=== PATIENT | female | born 1955 ===

== ENCOUNTER 2024-08-10 14:12 | Emergency (ER) | payer OTHER, SELFPAY ==
--- NOTE | 2024-08-10 14:43 | ED_ITS ---
HPI - Eye Problem General Chief complaint: Eye Problems Stated complaint: R Eye- Watery, Swelling, Pain Time Seen by Provider: 08/10/24 22:23 Source: patient Mode of arrival: ambulatory Limitations: no limitations History of Present Illness ED Provider: HPI Narrative: Patient no significant past medical history noticed vesicular lesion on the right forehead all the way to the right ear since yesterday with pain although has purulent discharge from the right eye no vision no history of shingles in the past Related Data Previous Rx's ?Medication ?Instructions ?Recorded gabapentin 300 mg capsule 300 mg PO BID #30 caps 08/10/24 tobramycin 0.3 % eye drops 2 drp ophthalmic-Right Q4H #5 mL 08/10/24 valacyclovir 1 gram tablet 1,000 mg PO TID #20 tabs 08/10/24 (Valtrex) Allergies Allergy/AdvReac Type Severity Reaction Status Date / Time No Known Allergies Allergy Verified 08/10/24 14:46 [No Known Allergies*] Review of Systems Review of Systems: Yes all other systems are reviewed and are negative [facility] Social History Social History Advance Directives: No Advance Directives Information Provided: No Do you have a plan to hurt others: No Plan Physical Exam Vital Signs: Vital Signs: Last Vital Signs Temp 97.8 F 08/10/24 22:46 Pulse 75 08/10/24 22:46 Resp 19 08/10/24 22:46 BP 168/70 H 08/10/24 22:46 Pulse Ox 99 08/10/24 22:46 O2 Del Method Room Air 08/10/24 22:46 BMI result Body Mass Index 27.2 Appearance: Alert. Oriented X3. No acute distress. Eyes: no pallor or icterus purulent discharge from the right eye no corneal abrasions fluorescein uptake negative iris normal anterior chamber normal HEENT: Pharynx normal. Oral Mucosa moist, vesicular lesion right forehead with lesions on the right side of the face Neck: Normal inspection. Neck supple. CVS: Normal heart rate and rhythm. Pulses normal. Respiratory: No respiratory distress. Equal air entry bilateral, no wheezing/rales/rhonchi Abd: soft, not tender Skin: Skin warm and dry. Normal skin color. Normal skin turgor. Course Course Course Narrative: This is an RME: Additional HPI, ROS, PE not included below will be deferred to primary provider. RME assessment and note performed by: Prema Sherman PA-C This is a [id number], with hx of HTN, who presents to the ER with complaints of eye complaint. Reports that yesterday she developed headache and has had burning pain to the right side of her face. Reporting blurred vision from her right eye. ?shingles. Plan: visual acuity, eye exam Medications Administered Discontinued Medications Generic Name Dose Route Start Last Admin Trade Name Freq PRN Reason Stop Dose Admin Fluorescein Sodium 1 strip 08/10/24 14:46 08/10/24 22:50 Fluorescein Sodium Strip EYE-RIGHT 08/10/24 14:47 1 strip ONCE ONE Administration Tetracaine HCl 1 drop 08/10/24 14:46 08/10/24 22:49 Tetracaine Hcl/Pf 0.5% Oph Jeannie 4 Ml Drops EYE-LEFT 08/10/24 14:47 Not Given ONCE ONE Medical Decision Making Medical Decision Making [facility] Narrative: Patient clinically with shingles rash in the right side of the forehead will prescribe Valtrex unlikely corneal involvement at this time patient's for to Dr. 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
[2024-08-10 14:45] VITALS: BP 186/78; PULSE 94; RESP 12; TEMP 36.7; O2SAT 96; BMI 27.2
[2024-08-10 19:48] VITALS: BP 155/55; PULSE 79; RESP 16; TEMP 35.2; O2SAT 100
[2024-08-10 22:46] VITALS: BP 168/70; PULSE 75; RESP 19; TEMP 36.6; O2SAT 99
[2024-08-10] MEDS: Fluorescein Sodium STRIP 1 STRIP EYE-RIGHT (22:50)
[2024-08-10] MEDS: Tobramycin Sulfate 0.3% Sol Op 5 ML BTL 2 DROP EYE-RIGHT (23:12)
[2024-08-10] MEDS: valACYclovir HCL 1,000 MG TABLET 1000 MG PO (23:12)
[2024-08-10 23:17] VITALS: BP 168/70; PULSE 75; RESP 19; TEMP 36.6; O2SAT 99
== END 2024-08-10 23:17 | disposition home or self-care (01) ==
PROVIDERS: Emergency Provider Internal Medicine; PCP Internal Medicine
DX: B02.8 Zoster with other complications (principal)
CPT/HCPCS: 99283; 99284